=== PATIENT | male | born 1960 | race Caucasian/White ===

== ENCOUNTER 2017-03-10 11:50 | Inpatient (IN) | payer OTHER ==
[2017-03-10 13:05] VITALS: BMI 34.0
--- NOTE | 2017-03-10 14:03 | HP ---
CIWA Score - CIWA Score Nausea/Vomitin Muscle Tremors: 3 Anxiety: 3 Agitation: 3 Paroxysmal Sweats: 1-Minimal Palms Moist Orientation: 0-Oriented Tacttile Disturbances: 2-Mild Itch/Numbness/Burn Auditory Disturbances: 2-Mild Harshness/Frighten Visual Disturbances: 2-Mild Sensitivity Headache: 2-Mild CIWA-Ar Total Score: 21 Admission ROS B[facility] - HPI Chief Complaint: I NEED HELP TO STOP DRINKING ALCOHOL Allergies/Adverse Reactions: Allergies Allergy/AdvReac Type Severity Reaction Status Date / Time No Known Allergies Allergy Verified 03/10/17 13:37 History of Present Illness: THIS 56 YEARS OLD WHITE MALE WITH ALCOHOL DEPENDENCE,SEEKING HELP FOR ALCOHOL DETOX,LAST DETOX [facility] MULTIPLE MEDICAL PROBLEMS ASTHMA,COPD,HEPATITIS C TREATED,SYNCOPE,ANGINA,FX OF C4 AND C5,LEFT KNEE ARTHROSCOPY, CARPAL TUNNEL SYNDROME SURGERY,PTSD Exam Limitations: No Limitations - Ebola screening Have you traveled outside of the country in the last 21 days: No Have you had contact with anyone from an Ebola affected area: No Have you been sick,other than usual withdrawal symptoms: No Do you have a fever: No - Review of Systems Constitutional: Loss of Appetite, Malaise, Night Sweats, Changes in sleep, Weakness EENT: reports: Nose Congestion Respiratory: reports: Shortness of Breath, Wheezing Cardiac: reports: Palpitations GI: reports: Diarrhea, Nausea, Vomiting, Abdominal cramping : reports: No Symptoms Reported Musculoskeletal: reports: Back Pain, Joint Pain, Muscle Pain, Joint Stiffness Integumentary: reports: Dryness Neuro: reports: No Symptoms reported, Headache, Tremors Endocrine: reports: No Symptoms Reported Hematology: reports: No Symptoms Reported Psychiatric: reports: Depressed, other (PTSD) Patient History - Patient Medical History Hx Anemia: No Hx Asthma: Yes (ON INHALER) Hx Chronic Obstructive Pulmonary Disease (COPD): Yes (ON INHAKER) Hx Cancer: No Hx Cardiac Disorders: No Hx Congestive Heart Failure: No Hx Hypertension: Yes (not on meds.) Hx Hypercholesterolemia: No Hx Pacemaker: No HX Cerebrovascular Accident: No Hx Seizures: No Hx Dementia: No Hx Diabetes: No Hx Gastrointestinal Disorders: No Hx Liver Disease: No Hx Genitourinary Disorders: No Hx Sexually Transmitted Disorders: Yes (Tx for syphillis 15 yrs ago.) Hx Renal Disease (ESRD): No Hx Thyroid Disease: No Hx Human Immunodeficiency Virus (HIV): No (LAST 2014 NEGATIVE) Hx Hepatitis C: Yes (TREATED) Hx Depression: Yes Hx Suicide Attempt: Yes (Pt tried to overdose in 2000) Hx Schizophrenia: No Other Medical History: NO SUICIDAL,NO HOMICIDAL - Patient Surgical History Past Surgical History: Yes Hx Neurologic Surgery: Yes (Bilateral carpal tunnel syndrome) Hx Orthopedic Surgery: Yes (L knee arthroscopy) Other Surgical History: Sx L index finger. Anesthesia Reaction: No - PPD History Previous Implant?: Yes Documented Results: Negative w/proof Implanted On Prior [facility] Admission?: No PPD to be Administered?: Yes - Smoking Cessation Smoking history: Current some day smoker Have you smoked in the past 12 months: Yes Aproximately how many cigarettes per day: 3 Hx Chewing Tobacco Use: No Initiated information on smoking cessation: Yes 'Breaking Loose' booklet given: 03/10/17 - Substance & Tx. History Hx Alcohol Use: Yes Hx Substance Use: No Substance Use Type: Alcohol Hx Substance Use Treatment: Yes ([facility] 2003) - Substances Abused Alcohol Route: Oral Frequency: Daily Amount used: 4 24 OZ CANS/ 1 PINT VODKA Age of first use: 11 Date of Last Use: 03/09/17 Family Disease History - Family Disease History Family History: Denies Admission Physical Exam [facility] - Vital Signs Vital Signs: Vital Signs - 24 hr 03/10/17 13:02 Temperature 99 F Pulse Rate 98 H Respiratory 20 Rate Blood Pressure 154/96 - Physical General Appearance: Yes: Moderate Distress, Tremorous, Irritable, Sweating, Anxious HEENTM: Yes: Hearing grossly Normal, Normal ENT Inspection, Pharynx Normal Respiratory: Yes: No Respiratory Distress, Wheezing Neck: Yes: Within Normal Limits, No masses,lesions,Nodules, Supple Breast: Yes: Within Normal Limits Cardiology: Yes: Within Normal Limits, Regular Rhythm, Regular Rate, S1, S2 Abdominal: Yes: Normal Bowel Sounds, Non Tender, Flat, Soft Genitourinary: Yes: Within Normal Limits Back: Yes: Muscle Spasm Musculoskeletal: Yes: Within Normal Limits, full range of Motion, Back pain, Muscle Pain Extremities: Yes: Tremors Neurological: Yes: quantitative associate II-XII NML intact, Fully Oriented, Alert, Motor Strength 5/5 Integumentary: Yes: Dry Lymphatic: Yes: Within Normal Limits - Diagnostic (1) Alcohol dependence with uncomplicated withdrawal Current Visit: Yes Status: Acute (2) COPD (chronic obstructive pulmonary disease) Current Visit: Yes Status: Chronic (3) Asthma Current Visit: Yes Status: Acute (4) PTSD (post-traumatic stress disorder) Current Visit: Yes Status: Acute (5) Depression Current Visit: Yes Status: Acute (6) Hepatitis C Current Visit: Yes Status: Chronic (7) History of angina Current Visit: Yes Status: Chronic (8) Cervical spine fracture Current Visit: Yes Status: Chronic Cleared for Admission [facility] - Detox or Rehab [facility] Level of Care: Medically Managed Detox Regimen/Protocol: Librium [facility] Breath Alcohol Content Breath Alcohol Content: 0 Urine Drug Screen - Results Drug Screen Negative: Yes
[2017-03-10] MEDS ORDERED: chlordiazePOXIDE HCL 25 MG CAPSULE PO PRN (14:14)
[2017-03-10] MEDS ORDERED: MENTHOL/PHENOL 1 EACH UD MM PRN (14:14)
[2017-03-10] MEDS ORDERED: MAG HYDROX/AL HYDROX/SIMETH 30 ML UNIT-DOSE CUP PO PRN (14:14)
[2017-03-10] MEDS ORDERED: diphenhydrAMINE HCL 50 MG CAPSULE PO PRN (14:14)
[2017-03-10] MEDS ORDERED: LOPERAMIDE HCL 2 MG CAPSULE PO PRN (14:14)
[2017-03-10] MEDS ORDERED: hydrOXYzine PAMOATE 50 MG CAPSULE (FP) PO PRN (14:14)
[2017-03-10] MEDS ORDERED: ACETAMINOPHEN 325 MG TABLET (FP) PO PRN (14:14)
[2017-03-10] MEDS ORDERED: P-EPHED 60MG/TRIPROLIDI 2.5MG TABLET PO PRN (14:14)
[2017-03-10] MEDS ORDERED: IBUPROFEN 400 MG TABLET (FP) PO PRN (14:14)
[2017-03-10] MEDS ORDERED: MAGNESIUM HYDROX 2400MG/30ML ORAL SUSPENSION 30 ML CUP PO PRN (14:14)
[2017-03-10] MEDS ORDERED: MAGNESIUM CITRATE 300 ML BOTTLE PO PRN (14:14)
[2017-03-10] MEDS ORDERED: chlordiazePOXIDE HCL 25 MG CAPSULE PO ONE (14:29)
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
[2017-03-10] MEDS: chlordiazePOXIDE HCL 25 MG CAPSULE PO SCH ×2 (17:27→22:36)
[2017-03-10 18:00] LABS: URINE APPEARANCE CLEAR; URINE BILIRUBIN NEGATIVE (NEGATIVE); URINE BLOOD NEGATIVE (NEGATIVE); URINE COLOR YELLOW; URINE GLUCOSE (UA) NEGATIVE (NEGATIVE); URINE KETONE NEGATIVE (NEGATIVE); URINE LEUK ESTERASE NEGATIVE (NEGATIVE); URINE NITRITE NEGATIVE (NEGATIVE); URINE PROTEIN NEGATIVE (NEGATIVE); URINE UROBILINOGEN NEGATIVE E.U./dl (0.2-1.0)
[2017-03-10] MEDS: IBUPROFEN 600 MG TABLET (FP) PO PRN (20:15)
--- NOTE | 2017-03-10 21:05 | PN ---
[facility] Progress Note Note: PATIENT REPORTS SHOWER HEAD FELL OUT AND HIT HIS HEAD OBSERVED PATIENT AMBULATING ON [address], ALERT ORIENTED X 3, NO ACUTE DISTRESS, DENIES PAIN, DENIES VISION ALTERATION, NORMAL CEPHALIC, SKIN INTACT, NO REDNESS , NO SWELL, NONE TENDER, PATIENT REPORTS RIGHT HAND PAIN FROM OLD INJURY "40 YEARS AGO", ICE PACK + X RAY CONTINUE DETOX
[2017-03-10] MEDS: THIAMINE HCL 100 MG TABLET (FP) PO SCH (22:36)
[2017-03-10] MEDS: traZODone HCL 100 MG TABLET (FP) PO SCH (22:37)
[2017-03-10] MEDS: BUDESONIDE/FORMETEROL FUMARATE 160/4.5 mcg INHALER IH SCH (23:22)
[2017-03-11] MEDS: chlordiazePOXIDE HCL 25 MG CAPSULE PO SCH ×4 (05:39→22:46)
[2017-03-11] MEDS: IBUPROFEN 600 MG TABLET (FP) PO PRN (07:09)
[2017-03-11 10:24] LABS: ALBUMIN 4.2 g/dl (3.4-5.0); ALK PHOS 118 U/L (45-117); ANION GAP 12 (8-16); BILIRUBIN,TOTAL 0.9 mg/dL (0.2-1.0); CALCIUM 9.2 mg/dL (8.5-10.1); CO2 23 mmol/L (21-32); COCKROFT - GAULT 128.57; CREATININE 0.9 mg/dL (0.7-1.3); GLUCOSE,RANDOM 90 mg/dL (74-106); SGOT/AST 35 U/L (15-37); SGPT/ALT 59 U/L (12-78); TOT PROT 8.1 g/dl (6.4-8.2)
[2017-03-11 10:27] LABS: MCH 30.6 pg (25.7-33.7); MCHC 34.6 g/dl (32.0-35.9); MEAN CELL VOLUME 88.3 fl (80-96); MEAN PLT VOLUME 8.1 fl (7.5-11.1); PLATELET COUNT 155 K/MM3 (134-434); RDW 14.3 % (11.9-15.9); WHITE BLOOD COUNT 13.8 K/mm3 (4.0-10.0)
[2017-03-11] MEDS: PRENATAL VITAMINS W/ FOLIC ACID TABLET (FP) PO SCH (10:38)
[2017-03-11] MEDS: FLUoxetine HCL 20 MG CAPSULE (FP) PO SCH (10:38)
[2017-03-11] MEDS: BUDESONIDE/FORMETEROL FUMARATE 160/4.5 mcg INHALER IH SCH ×2 (10:39→22:46)
--- NOTE | 2017-03-11 11:38 | EKG ---
Test Reason : Blood Pressure : / mmHG Vent. Rate : 080 BPM Atrial Rate : 080 BPM P-R Int : 136 ms QRS Dur : 092 ms QT Int : 414 ms P-R-T Axes : 037 010 043 degrees QTc Int : 477 ms NORMAL SINUS RHYTHM NORMAL ECG NO PREVIOUS ECGS AVAILABLE Confirmed by TOBY BOWEN MD ([id number]) on 03/11/2017 11:38:15 AM Referred By: Confirmed By:TOBY BOWEN MD
--- NOTE | 2017-03-11 13:44 | PN ---
[facility] CIWA - CIWA Score Nausea/Vomitin-No Nausea/No Vomiting Muscle Tremors: 3 Anxiety: 4-Mod. Anxious/Guarded Agitation: 3 Paroxysmal Sweats: 3 Orientation: 0-Oriented Tacttile Disturbances: 3-Moderate Itch/Numb/Burn Auditory Disturbances: 2-Mild Harshness/Frighten Visual Disturbances: 0-None Headache: 0-None Present CIWA-Ar Total Score: 18 S Progress Note (SOAP) Subjective: Body aches, H/A, Back Ache, Tremors. Objective: PT. A & O X 3, OBSERVED AMBULATING ON UNIT. PT. DENIES CHEST PAIN. 03/11/17 13:42 Vital Signs Temperature 96.9 F L 03/11/17 09:36 Pulse Rate 76 03/11/17 09:36 Respiratory Rate 18 03/11/17 09:36 Blood Pressure 124/75 03/11/17 09:36 O2 Sat by Pulse Oximetry (%) Laboratory Last Values WBC 13.8 K/mm3 (4.0-10.0) H 03/11/17 06:00 RBC 4.76 M/mm3 (4.00-5.60) 03/11/17 06:00 Hgb 14.6 GM/dL (11.7-16.9) 03/11/17 06:00 Hct 42.1 % (35.4-49) 03/11/17 06:00 MCV 88.3 fl (80-96) 03/11/17 06:00 MCHC 34.6 g/dl (32.0-35.9) 03/11/17 06:00 RDW 14.3 % (11.9-15.9) 03/11/17 06:00 Plt Count 155 K/MM3 (134-434) 03/11/17 06:00 MPV 8.1 fl (7.5-11.1) 03/11/17 06:00 Sodium 143 mmol/L (136-145) 03/11/17 06:00 Potassium 3.9 mmol/L (3.5-5.1) 03/11/17 06:00 Chloride 108 mmol/L (98-107) H 03/11/17 06:00 Carbon Dioxide 23 mmol/L (21-32) 03/11/17 06:00 Anion Gap 12 (8-16) 03/11/17 06:00 BUN 18 mg/dL (7-18) 03/11/17 06:00 Creatinine 0.9 mg/dL (0.7-1.3) 03/11/17 06:00 Creat Clearance w eGFR > 60 (>60) 03/11/17 06:00 Random Glucose 90 mg/dL (74-106) 03/11/17 06:00 Calcium 9.2 mg/dL (8.5-10.1) 03/11/17 06:00 Total Bilirubin 0.9 mg/dL (0.2-1.0) 03/11/17 06:00 AST 35 U/L (15-37) 03/11/17 06:00 ALT 59 U/L (12-78) 03/11/17 06:00 Alkaline Phosphatase 118 U/L (45-117) H 03/11/17 06:00 Total Protein 8.1 g/dl (6.4-8.2) 03/11/17 06:00 Albumin 4.2 g/dl (3.4-5.0) 03/11/17 06:00 Urine Color Yellow 03/10/17 15:30 Urine Appearance Clear 03/10/17 15:30 Urine pH 6.0 (5.0-8.0) 03/10/17 15:30 Ur Specific [place] 1.015 (1.005-1.025) 03/10/17 15:30 Urine Protein Negative (NEGATIVE) 03/10/17 15:30 Urine Glucose (UA) Negative (NEGATIVE) 03/10/17 15:30 Urine Ketones Negative (NEGATIVE) 03/10/17 15:30 Urine Blood Negative (NEGATIVE) 03/10/17 15:30 Urine Nitrite Negative (NEGATIVE) 03/10/17 15:30 Urine Bilirubin Negative (NEGATIVE) 03/10/17 15:30 Urine Urobilinogen Negative E.U./dl (0.2-1.0) 03/10/17 15:30 Ur Leukocyte Esterase Negative (NEGATIVE) 03/10/17 15:30 LABS NOTED. 03/11/17 13:44 Assessment: 03/11/17 13:43 WITHDRAWAL SYMPTOMS. Plan: CONTINUE DETOX. ADVISED PATIENT TO FOLLOW-UP WITH OPTICAL WORKER AFTER DISCHARGE FROM DETOX FOR GENERAL MEDICAL ASSESSMENT AND FOR ABNORMAL DETOX ADMISSION LAB VALUES.
[2017-03-11] MEDS: traZODone HCL 100 MG TABLET (FP) PO SCH (22:46)
[2017-03-11] MEDS: THIAMINE HCL 100 MG TABLET (FP) PO SCH (22:46)
[2017-03-12] MEDS: chlordiazePOXIDE HCL 25 MG CAPSULE PO SCH ×2 (05:36→10:32)
[2017-03-12] MEDS: ALBUTEROL SO4 6.7 GM HFA INHALER IH PRN (05:39)
[2017-03-12] MEDS: IBUPROFEN 600 MG TABLET (FP) PO PRN (09:08)
[2017-03-12] MEDS: PRENATAL VITAMINS W/ FOLIC ACID TABLET (FP) PO SCH (10:32)
[2017-03-12] MEDS: BUDESONIDE/FORMETEROL FUMARATE 160/4.5 mcg INHALER IH SCH ×2 (10:32→22:52)
[2017-03-12] MEDS: FLUoxetine HCL 20 MG CAPSULE (FP) PO SCH (10:32)
--- NOTE | 2017-03-12 12:17 | PN ---
S CIWA - CIWA Score Nausea/Vomitin-No Nausea/No Vomiting Muscle Tremors: 3 Anxiety: 4-Mod. Anxious/Guarded Agitation: 3 Paroxysmal Sweats: 2 Orientation: 0-Oriented Tacttile Disturbances: 3-Moderate Itch/Numb/Burn Auditory Disturbances: 2-Mild Harshness/Frighten Visual Disturbances: 0-None Headache: 3-Moderate CIWA-Ar Total Score: 20 [facility] Progress Note (SOAP) Subjective: Interrupted Sleep, H/A, Body Aches. Pt. reports discomfort in right hand (pt. fell to ground and hit right hand on ground on 03/09/2017, just prior to admission to Detox) Objective: PT. A & O X 3, OBSERVED AMBULATING ON UNIT. PT. DENIES CHEST PAIN. MILD SWELLING NOTED ON DORSUM OF RIGHT HAND. NO WOUNDS, DISCOLORATION, ERYTHEMA , OR UNUSUAL DISCHARGE NOTED ON RIGHT HAND. PT. HAS FULL ROM OF RIGHT HAND AND FINGERS. PT. DENIES NUMBNESS / TINGLING IN RIGHT HAND / FINGERS. 03/12/17 12:13 Vital Signs Temperature 98 F 03/12/17 09:54 Pulse Rate 71 03/12/17 09:54 Respiratory Rate 20 03/12/17 09:54 Blood Pressure 140/83 03/12/17 09:54 O2 Sat by Pulse Oximetry (%) Laboratory Last Values WBC 13.8 K/mm3 (4.0-10.0) H 03/11/17 06:00 RBC 4.76 M/mm3 (4.00-5.60) 03/11/17 06:00 Hgb 14.6 GM/dL (11.7-16.9) 03/11/17 06:00 Hct 42.1 % (35.4-49) 03/11/17 06:00 MCV 88.3 fl (80-96) 03/11/17 06:00 MCHC 34.6 g/dl (32.0-35.9) 03/11/17 06:00 RDW 14.3 % (11.9-15.9) 03/11/17 06:00 Plt Count 155 K/MM3 (134-434) 03/11/17 06:00 MPV 8.1 fl (7.5-11.1) 03/11/17 06:00 Sodium 143 mmol/L (136-145) 03/11/17 06:00 Potassium 3.9 mmol/L (3.5-5.1) 03/11/17 06:00 Chloride 108 mmol/L (98-107) H 03/11/17 06:00 Carbon Dioxide 23 mmol/L (21-32) 03/11/17 06:00 Anion Gap 12 (8-16) 03/11/17 06:00 BUN 18 mg/dL (7-18) 03/11/17 06:00 Creatinine 0.9 mg/dL (0.7-1.3) 03/11/17 06:00 Creat Clearance w eGFR > 60 (>60) 03/11/17 06:00 Random Glucose 90 mg/dL (74-106) 03/11/17 06:00 Calcium 9.2 mg/dL (8.5-10.1) 03/11/17 06:00 Total Bilirubin 0.9 mg/dL (0.2-1.0) 03/11/17 06:00 AST 35 U/L (15-37) 03/11/17 06:00 ALT 59 U/L (12-78) 03/11/17 06:00 Alkaline Phosphatase 118 U/L (45-117) H 03/11/17 06:00 Total Protein 8.1 g/dl (6.4-8.2) 03/11/17 06:00 Albumin 4.2 g/dl (3.4-5.0) 03/11/17 06:00 Urine Color Yellow 03/10/17 15:30 Urine Appearance Clear 03/10/17 15:30 Urine pH 6.0 (5.0-8.0) 03/10/17 15:30 Ur Specific [place] 1.015 (1.005-1.025) 03/10/17 15:30 Urine Protein Negative (NEGATIVE) 03/10/17 15:30 Urine Glucose (UA) Negative (NEGATIVE) 03/10/17 15:30 Urine Ketones Negative (NEGATIVE) 03/10/17 15:30 Urine Blood Negative (NEGATIVE) 03/10/17 15:30 Urine Nitrite Negative (NEGATIVE) 03/10/17 15:30 Urine Bilirubin Negative (NEGATIVE) 03/10/17 15:30 Urine Urobilinogen Negative E.U./dl (0.2-1.0) 03/10/17 15:30 Ur Leukocyte Esterase Negative (NEGATIVE) 03/10/17 15:30 RPR Titer Nonreactive (NONREACTIVE) 03/11/17 06:00 LABS NOTED. RESULTS OF X-RAY OF RIGHT HAND FROM 03/10/2017 NOTED. 03/12/17 12:15 03/12/17 12:18 Assessment: 03/12/17 12:14 WITHDRAWAL SYMPTOMS. Plan: CONTINUE DETOX. ICE PACK ORDERED FOR RIGHT HAND. WRIST SPLINT / STABILIZER ORDERED FOR RIGHT HAND / WRIST AND SLING ORDERED FOR RIGHT ARM. PT. ADVISED TO WEAR BOTH SPLINT AND SLING AND TO REST RIGHT HAND MUCH POSSIBLE AND LIMIT USE OF IT MUCH POSSIBLE FOR TIME BEING. PATIENT VERBALIZED UNDERSTANDING OF INSTRUCTIONS / RECOMMENDATIONS. PRN IBUPROFEN FOR PAIN IN HAND. ADVISED PATIENT TO FOLLOW-UP WITH LEAD QA ANALYST AFTER DISCHARGE FROM DETOX FOR GENERAL MEDICAL ASSESSMENT AND FOR HISTORY OF FRACTURE OF RIGHT HAND.
[2017-03-12] MEDS: BETAMETHASONE VALER 0.1% OINT 15 GM TUBE TP SCH ×2 (14:44→23:28)
--- NOTE | 2017-03-12 17:15 | PN ---
[facility] Progress Note Note: RECEIVED REPORT FROM Larisa ANN, RN: RESULT OF ADMISSION PPD: POSITIVE (15 MM). PATIENT DENIES CHEST PAIN, SOB, AND COUGH. PATIENT AFEBRILE SINCE ADMISSION TO DETOX. CXR ORDERED FOR FURTHER EVALUATION. Tim WINTER EXTRUSION PRESS OPERATOR
[2017-03-12] MEDS: chlordiazePOXIDE 5 MG CAPSULE PO SCH ×2 (17:17→22:52)
[2017-03-12] MEDS: traZODone HCL 100 MG TABLET (FP) PO SCH (22:52)
[2017-03-12] MEDS: THIAMINE HCL 100 MG TABLET (FP) PO SCH (22:52)
[2017-03-13] MEDS: chlordiazePOXIDE 5 MG CAPSULE PO SCH ×2 (06:16→10:36)
[2017-03-13] MEDS: IBUPROFEN 600 MG TABLET (FP) PO PRN ×2 (06:21→11:43)
[2017-03-13] MEDS: BUDESONIDE/FORMETEROL FUMARATE 160/4.5 mcg INHALER IH SCH ×2 (10:35→22:47)
[2017-03-13] MEDS: PRENATAL VITAMINS W/ FOLIC ACID TABLET (FP) PO SCH (10:36)
[2017-03-13] MEDS: BETAMETHASONE VALER 0.1% OINT 15 GM TUBE TP SCH ×2 (10:36→22:49)
[2017-03-13] MEDS: FLUoxetine HCL 20 MG CAPSULE (FP) PO SCH (10:38)
[2017-03-13] MEDS: chlordiazePOXIDE HCL 10 MG CAPSULE PO SCH ×2 (18:08→22:49)
--- NOTE | 2017-03-13 19:16 | PN ---
[facility] Progress Note (SOAP) Subjective: Back Ache, Interrupted Sleep, Fatigue. Objective: PT. A 7 O X 3, OBSERVED AMBULATING ON UNIT. PT. DENIES CHEST PAIN. 03/13/17 19:13 Vital Signs Temperature 97.2 F L 03/13/17 13:30 Pulse Rate 76 03/13/17 13:30 Respiratory Rate 18 03/13/17 13:30 Blood Pressure 138/83 03/13/17 13:30 O2 Sat by Pulse Oximetry (%) Laboratory Tests 03/10/17 03/11/17 03/11/17 15:30 06:00 06:00 WBC 13.8 H RBC 4.76 Hgb 14.6 Hct 42.1 MCV 88.3 MCHC 34.6 RDW 14.3 Plt Count 155 MPV 8.1 Sodium 143 Potassium 3.9 Chloride 108 H Carbon Dioxide 23 Anion Gap 12 BUN 18 Creatinine 0.9 Creat Clearance w eGFR > 60 Random Glucose 90 Calcium 9.2 Total Bilirubin 0.9 AST 35 ALT 59 Alkaline Phosphatase 118 H Total Protein 8.1 Albumin 4.2 Urine Color Yellow Urine Appearance Clear Urine pH 6.0 Ur Specific [place] 1.015 Urine Protein Negative Urine Glucose (UA) Negative Urine Ketones Negative Urine Blood Negative Urine Nitrite Negative Urine Bilirubin Negative Urine Urobilinogen Negative Ur Leukocyte Esterase Negative RPR Titer 03/11/17 06:00 WBC RBC Hgb Hct MCV MCHC RDW Plt Count MPV Sodium Potassium Chloride Carbon Dioxide Anion Gap BUN Creatinine Creat Clearance w eGFR Random Glucose Calcium Total Bilirubin AST ALT Alkaline Phosphatase Total Protein Albumin Urine Color Urine Appearance Urine pH Ur Specific [place] Urine Protein Urine Glucose (UA) Urine Ketones Urine Blood Urine Nitrite Urine Bilirubin Urine Urobilinogen Ur Leukocyte Esterase RPR Titer Nonreactive LABS NOTED. Assessment: 03/13/17 19:14 WITHDRAWAL SYMPTOMS. Plan: CONTINUE DETOX. AGAIN ADVISED PATIENT TO WEAR BOTH SPLINT AND WRIST / HAND SPLINT PRESCRIBED FOR FRACTURE OF RIGHT HAND. HOWEVER, PATIENT DECLINES TO DO SO. PATIENT AGAIN ADVISED TO FOLLOW-UP WITH E COMMERCE SOLUTION ARCHITECT AFTER DISCHARGE FROM DETOX FOR GENERAL MEDICAL ASSESSMENT AND FOR HISTORY OF FRACTURE OF RIGHT HAND.
[2017-03-13] MEDS: THIAMINE HCL 100 MG TABLET (FP) PO SCH (22:48)
[2017-03-13] MEDS: traZODone HCL 100 MG TABLET (FP) PO SCH (22:48)
[2017-03-14] MEDS: chlordiazePOXIDE HCL 10 MG CAPSULE PO SCH ×2 (07:23→10:34)
[2017-03-14] MEDS: PRENATAL VITAMINS W/ FOLIC ACID TABLET (FP) PO SCH (10:33)
[2017-03-14] MEDS: BUDESONIDE/FORMETEROL FUMARATE 160/4.5 mcg INHALER IH SCH ×2 (10:33→17:56)
[2017-03-14] MEDS: BETAMETHASONE VALER 0.1% OINT 15 GM TUBE TP SCH ×2 (10:33→22:48)
[2017-03-14] MEDS: FLUoxetine HCL 20 MG CAPSULE (FP) PO SCH (10:33)
[2017-03-14] MEDS: guaiFENesin/D-METHORPHAN HB 10 ML UNIT-DOSE CUPS PO PRN ×2 (12:25→19:55)
[2017-03-14] MEDS: IBUPROFEN 600 MG TABLET (FP) PO PRN ×2 (12:25→22:34)
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
[2017-03-14] MEDS: traZODone HCL 100 MG TABLET (FP) PO SCH (22:33)
[2017-03-14] MEDS: THIAMINE HCL 100 MG TABLET (FP) PO SCH (22:33)
[2017-03-15] MEDS: BUDESONIDE/FORMETEROL FUMARATE 160/4.5 mcg INHALER IH SCH ×2 (05:38→17:30)
[2017-03-15] MEDS: guaiFENesin/D-METHORPHAN HB 10 ML UNIT-DOSE CUPS PO PRN ×2 (05:39→22:47)
[2017-03-15] MEDS: IBUPROFEN 600 MG TABLET (FP) PO PRN ×2 (05:41→22:49)
[2017-03-15] MEDS: PRENATAL VITAMINS W/ FOLIC ACID TABLET (FP) PO SCH (10:34)
[2017-03-15] MEDS: FLUoxetine HCL 20 MG CAPSULE (FP) PO SCH (10:35)
[2017-03-15] MEDS: BETAMETHASONE VALER 0.1% OINT 15 GM TUBE TP SCH ×2 (10:35→22:52)
[2017-03-15] MEDS: ALBUTEROL SO4 6.7 GM HFA INHALER IH PRN (11:33)
--- NOTE | 2017-03-15 11:41 | PN ---
[facility] Progress Note (SOAP) Subjective: Tremors, Lower Back Ache, H/A, Body Aches. Objective: PT. A & O X 3, OBSERVED AMBULATING ON UNIT. 03/15/17 11:37 Vital Signs Temperature 95.1 F L 03/15/17 09:58 Pulse Rate 77 03/15/17 09:58 Respiratory Rate 18 03/15/17 09:58 Blood Pressure 127/88 03/15/17 09:58 O2 Sat by Pulse Oximetry (%) Laboratory Tests 03/10/17 03/11/17 03/11/17 15:30 06:00 06:00 WBC 13.8 H RBC 4.76 Hgb 14.6 Hct 42.1 MCV 88.3 MCHC 34.6 RDW 14.3 Plt Count 155 MPV 8.1 Sodium 143 Potassium 3.9 Chloride 108 H Carbon Dioxide 23 Anion Gap 12 BUN 18 Creatinine 0.9 Creat Clearance w eGFR > 60 Random Glucose 90 Calcium 9.2 Total Bilirubin 0.9 AST 35 ALT 59 Alkaline Phosphatase 118 H Total Protein 8.1 Albumin 4.2 Urine Color Yellow Urine Appearance Clear Urine pH 6.0 Ur Specific [place] 1.015 Urine Protein Negative Urine Glucose (UA) Negative Urine Ketones Negative Urine Blood Negative Urine Nitrite Negative Urine Bilirubin Negative Urine Urobilinogen Negative Ur Leukocyte Esterase Negative RPR Titer 03/11/17 06:00 WBC RBC Hgb Hct MCV MCHC RDW Plt Count MPV Sodium Potassium Chloride Carbon Dioxide Anion Gap BUN Creatinine Creat Clearance w eGFR Random Glucose Calcium Total Bilirubin AST ALT Alkaline Phosphatase Total Protein Albumin Urine Color Urine Appearance Urine pH Ur Specific [place] Urine Protein Urine Glucose (UA) Urine Ketones Urine Blood Urine Nitrite Urine Bilirubin Urine Urobilinogen Ur Leukocyte Esterase RPR Titer Nonreactive LABS NOTED. AWAITING RESULTS OF CXR FOR TODAY. 03/15/17 11:39 Assessment: 03/15/17 11:38 WITHDRAWAL SYMPTOMS. Plan: CONTINUE DETOX. ADVISED PATIENT TO FOLLOW-UP WITH SALESPERSON TRAILERS AND [employer]ES AFTER DISCHARGE FOR GENERAL MEDICAL ASSESSMENT.
[2017-03-15] MEDS ORDERED: LIDOCAINE 5% TOPICAL PATCH TP ONE (12:00)
--- NOTE | 2017-03-15 16:39 | PN ---
[facility] Progress Note Note: Report for CXR done 03/15/2017 noted (No evidence of Active Pulmonary Disease). CXR ordered in as a result od positive PPD result on Admission. Results discussed with patient. Patient denies chest pain, cough, and SOB. Patient advised to follow-up with METAL ANNEALER after Discharge from Detox for further evaluation. Patient verbalized understanding of recommendation. Tim Hernandez NP
[2017-03-15] MEDS: THIAMINE HCL 100 MG TABLET (FP) PO SCH (22:47)
[2017-03-15] MEDS: traZODone HCL 100 MG TABLET (FP) PO SCH (22:47)
[2017-03-16] MEDS: guaiFENesin/D-METHORPHAN HB 10 ML UNIT-DOSE CUPS PO PRN (05:42)
[2017-03-16] MEDS: IBUPROFEN 600 MG TABLET (FP) PO PRN (05:42)
[2017-03-16] MEDS: BUDESONIDE/FORMETEROL FUMARATE 160/4.5 mcg INHALER IH SCH (05:44)
[2017-03-16 09:36] VITALS: BP 124/80; PULSE 78; TEMP 96.4
[2017-03-16] MEDS: FLUoxetine HCL 20 MG CAPSULE (FP) PO SCH (10:35)
[2017-03-16] MEDS: PRENATAL VITAMINS W/ FOLIC ACID TABLET (FP) PO SCH (10:35)
[2017-03-16] MEDS: BETAMETHASONE VALER 0.1% OINT 15 GM TUBE TP SCH (10:36)
--- NOTE | 2017-03-16 12:07 | DS ---
[facility] Detox Discharge Summary Admission Date: 03/10/17 Discharge Date: 03/16/17 - History Present History: Alcohol Dependence Pertinent Past History: Asthma Hep C - Physical Exam Results Vital Signs: Vital Signs Temperature 96.4 F L 03/16/17 09:36 Pulse Rate 78 03/16/17 09:36 Respiratory Rate 18 03/16/17 09:36 Blood Pressure 124/80 03/16/17 09:36 O2 Sat by Pulse Oximetry (%) Pertinent Admission Physical Exam Findings: Withdrawal sx. Laboratory Last Values WBC 13.8 K/mm3 (4.0-10.0) H 03/11/17 06:00 RBC 4.76 M/mm3 (4.00-5.60) 03/11/17 06:00 Hgb 14.6 GM/dL (11.7-16.9) 03/11/17 06:00 Hct 42.1 % (35.4-49) 03/11/17 06:00 MCV 88.3 fl (80-96) 03/11/17 06:00 MCHC 34.6 g/dl (32.0-35.9) 03/11/17 06:00 RDW 14.3 % (11.9-15.9) 03/11/17 06:00 Plt Count 155 K/MM3 (134-434) 03/11/17 06:00 MPV 8.1 fl (7.5-11.1) 03/11/17 06:00 Sodium 143 mmol/L (136-145) 03/11/17 06:00 Potassium 3.9 mmol/L (3.5-5.1) 03/11/17 06:00 Chloride 108 mmol/L (98-107) H 03/11/17 06:00 Carbon Dioxide 23 mmol/L (21-32) 03/11/17 06:00 Anion Gap 12 (8-16) 03/11/17 06:00 BUN 18 mg/dL (7-18) 03/11/17 06:00 Creatinine 0.9 mg/dL (0.7-1.3) 03/11/17 06:00 Creat Clearance w eGFR > 60 (>60) 03/11/17 06:00 Random Glucose 90 mg/dL (74-106) 03/11/17 06:00 Calcium 9.2 mg/dL (8.5-10.1) 03/11/17 06:00 Total Bilirubin 0.9 mg/dL (0.2-1.0) 03/11/17 06:00 AST 35 U/L (15-37) 03/11/17 06:00 ALT 59 U/L (12-78) 03/11/17 06:00 Alkaline Phosphatase 118 U/L (45-117) H 03/11/17 06:00 Total Protein 8.1 g/dl (6.4-8.2) 03/11/17 06:00 Albumin 4.2 g/dl (3.4-5.0) 03/11/17 06:00 Urine Color Yellow 03/10/17 15:30 Urine Appearance Clear 03/10/17 15:30 Urine pH 6.0 (5.0-8.0) 03/10/17 15:30 Ur Specific [place] 1.015 (1.005-1.025) 03/10/17 15:30 Urine Protein Negative (NEGATIVE) 03/10/17 15:30 Urine Glucose (UA) Negative (NEGATIVE) 03/10/17 15:30 Urine Ketones Negative (NEGATIVE) 03/10/17 15:30 Urine Blood Negative (NEGATIVE) 03/10/17 15:30 Urine Nitrite Negative (NEGATIVE) 03/10/17 15:30 Urine Bilirubin Negative (NEGATIVE) 03/10/17 15:30 Urine Urobilinogen Negative E.U./dl (0.2-1.0) 03/10/17 15:30 Ur Leukocyte Esterase Negative (NEGATIVE) 03/10/17 15:30 RPR Titer Nonreactive (NONREACTIVE) 03/11/17 06:00 labs noted - Treatment Hospital Course: Detox Protocol Followed, Detoxed Safely, Responded well, Discharged Condition Good, Rehab Referral Accepted Patient has Accepted a Rehab Referral to: [facility] - Medication Discharge Medications: Ambulatory Orders Albuterol Sulfate Inhaler - [Ventolin Hfa Inhaler -] 2 inh PO Q4H PRN 03/10/17 Budesonide/Formeterol Fumarate [SYMBICORT 160/4.5mcg -] 1 inh PO BID 03/10/17 Fluoxetine HCl [Prozac -] 60 mg PO DAILY 03/10/17 Ibuprofen [Motrin -] 600 mg PO Q6H PRN 03/10/17 Trazodone HCl [Desyrel -] 100 mg PO HS 03/10/17 - Diagnosis (1) Alcohol dependence with uncomplicated withdrawal Current Visit: Yes Status: Acute (2) Asthma Current Visit: Yes Status: Acute Qualifiers: Asthma severity: mild intermittent Asthma complication type: uncomplicated Qualified Code(s): J45.20 - Mild intermittent asthma, uncomplicated (3) Insomnia Current Visit: Yes Status: Acute (4) Nicotine dependence Current Visit: Yes Status: Acute Qualifiers: Nicotine product type: cigarettes Substance use status: uncomplicated Qualified Code(s): F17.210 - Nicotine dependence, cigarettes, uncomplicated (5) PTSD (post-traumatic stress disorder) Current Visit: Yes Status: Acute (6) Hepatitis C Current Visit: Yes Status: Chronic Qualifiers: Viral hepatitis chronicity: chronic Hepatic coma status: without hepatic coma Qualified Code(s): B18.2 - Chronic viral hepatitis C - AMA Did Patient Leave Against Medical Advice: No
== END 2017-03-16 12:30 | disposition other institution (70) | DRG 775 ==
LOC: YASAS 11:50 → Y3N 14:18
PROVIDERS: ADMIT Internal Medicine Addiction Medicine; ATTEND Internal Medicine Addiction Medicine
PROC: HZ2ZZZZ Detoxification Services for Substance Abuse Treatment (ICD-10-PCS; principal; 2017-03-10)
DX: F10.230 Alcohol dependence with withdrawal, uncomplicated (principal); F17.210 Nicotine dependence, cigarettes, uncomplicated; F43.10 Post-traumatic stress disorder, unspecified; J45.20 Mild intermittent asthma, uncomplicated; J44.9 Chronic obstructive pulmonary disease, unspecified; G47.00 Insomnia, unspecified; B18.2 Chronic viral hepatitis C; R76.11 Nonspecific reaction to tuberculin skin test without active tuberculosis; M79.641 Pain in right hand; Z87.438 Personal history of other diseases of male genital organs; Z91.5 Personal history of self-harm; W20.8XXA Other cause of strike by thrown, projected or falling object, initial encounter; Y93.E1 Activity, personal bathing and showering; Y92.231 Patient bathroom in hospital as the place of occurrence of the external cause
CPT/HCPCS: 36415; 71020-TC; 73130-TC-RT; 80053; 81003; 85027; 86593; 93005; 93010

== ENCOUNTER 2017-03-16 12:32 | Inpatient (IN) | payer OTHER ==
--- NOTE | 2017-03-16 14:07 | HP ---
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 He was diagnosed with MDD/PTSD and treated with Prozac and trazadone. [facility] [place] [facility]. He currently gets OPC care at [facility] and he is prescribed Prozac 60 mg po daily and trazdone 150 mg po HS. Told life underwriter that he cut Trazdone to 100mg on his own. Physical/Sexual Abuse/Trauma History: No reported history of sexual abuse. As he told Dr Alicea, He is heavily traumatized by the tragic of his and other personal stressors (estrangement form his daughter,discord with his brother,homelessness,financial strains). Additional Comment: Reports history of 2 previous misdemeanor arrests. denies being on probation currently Allergies/Adverse Reactions: Allergies Allergy/AdvReac Type Severity Reaction Status Date / Time No Known Allergies Allergy Verified 03/16/17 13:32 Date of last physical exam: 03/10/17 Concur with the findings of this exam: Yes - Substance Abuse/Tx History Hx Alcohol Use: Yes Hx Substance Use: No Substance Use Type: Alcohol (Started drrinking alcohol at age 11, consumes one pint of vodka & 4x 24oz of beer daily. Last drink on 03/09/17) Hx Substance Use Treatment: Yes (4 previous inpt detox & 2 inpt rehab([facility] & [facility])) - Admission Criteria Previous failed treatment: No Poor recovery environment: Yes Comorbidities: Yes Lacks judgement: Yes Mental Status Exam - Mental Status Exam Alert and Oriented to: Time, Place, Person Cognitive Function: Fair Patient Appearance: Well Groomed Mood: Hopeful, Euthymic Affect: Appropriate Patient Behavior: Cooperative Speech Pattern: Clear Voice Loudness: Normal Thought Process: Intact Thought Disorder: Present Hallucinations: Denies Suicidal Ideation: Denies, Past, Plan Homicidal Ideation: Denies Insight/Judgement: Fair Sleep: Fair Appetite: Good Muscle strength/Tone: Normal Gait/Station: Normal Psychiatric Findings - Problem List ([place] 1, 2,3) (1) Alcohol dependence with uncomplicated withdrawal Current Visit: No Status: Acute (2) Nicotine dependence Current Visit: No Status: Acute Qualifiers: Nicotine product type: cigarettes Substance use status: uncomplicated Qualified Code(s): F17.210 - Nicotine dependence, cigarettes, uncomplicated (3) PTSD (post-traumatic stress disorder) Current Visit: No Status: Acute (4) MDD (major depressive disorder), recurrent episode, severe Current Visit: Yes Status: Acute (5) Asthma Current Visit: No Status: Acute Qualifiers: Asthma severity: mild intermittent Asthma complication type: uncomplicated Qualified Code(s): J45.20 - Mild intermittent asthma, uncomplicated (6) COPD (chronic obstructive pulmonary disease) Current Visit: No Status: Chronic (7) Cervical spine fracture Current Visit: No Status: Chronic (8) Hepatitis C Current Visit: No Status: Chronic Qualifiers: Viral hepatitis chronicity: chronic Hepatic coma status: without hepatic coma Qualified Code(s): B18.2 - Chronic viral hepatitis C (9) History of angina Current Visit: No Status: Chronic - Initial Treatment Plan Initial Treatment Plan: 1) Continue Prozac 60 mg po daily and Trazadone 100 mg po HS. 2) Monitor progress
[2017-03-16] MEDS ORDERED: MAGNESIUM HYDROX 2400MG/30ML ORAL SUSPENSION 30 ML CUP PO PRN (14:43)
[2017-03-16] MEDS ORDERED: diphenhydrAMINE HCL 50 MG CAPSULE PO PRN (14:43)
[2017-03-16] MEDS ORDERED: P-EPHED 60MG/TRIPROLIDI 2.5MG TABLET PO PRN (14:43)
[2017-03-16] MEDS ORDERED: MAGNESIUM CITRATE 300 ML BOTTLE PO PRN (14:43)
[2017-03-16] MEDS ORDERED: MENTHOL/PHENOL 1 EACH UD MM PRN (14:43)
[2017-03-16] MEDS ORDERED: ACETAMINOPHEN 325 MG TABLET (FP) PO PRN (14:43)
[2017-03-16] MEDS ORDERED: LOPERAMIDE HCL 2 MG CAPSULE PO PRN (14:43)
[2017-03-16] MEDS ORDERED: NICOTINE POLACRILEX 2 MG GUM BUC PRN (14:43)
--- NOTE | 2017-03-16 14:46 | HP ---
[facility] Rehab Assess/Revision - Admission History Ad[facility]hab [facility] Date of Admission to Rehab: 03/16/17 - Findings Detox History & Physical reviewed: Yes Concur with findings: Yes Comments/Additional Findings: FOR REHAB PROTOCOL
[2017-03-16] MEDS: THIAMINE HCL 100 MG TABLET (FP) PO SCH (21:45)
[2017-03-16] MEDS: guaiFENesin/D-METHORPHAN HB 10 ML UNIT-DOSE CUPS PO PRN (21:45)
[2017-03-16] MEDS: traZODone HCL 100 MG TABLET (FP) PO SCH (21:45)
[2017-03-16] MEDS: BUDESONIDE/FORMETEROL FUMARATE 160/4.5 mcg INHALER IH SCH (21:45)
[2017-03-17] MEDS: ALBUTEROL SO4 6.7 GM HFA INHALER IH PRN (06:16)
[2017-03-17] MEDS: IBUPROFEN 400 MG TABLET (FP) PO PRN (06:17)
[2017-03-17] MEDS: guaiFENesin/D-METHORPHAN HB 10 ML UNIT-DOSE CUPS PO PRN ×3 (06:18→21:43)
[2017-03-17] MEDS: FLUoxetine HCL 20 MG CAPSULE (FP) PO SCH (10:48)
[2017-03-17] MEDS: PRENATAL VITAMINS W/ FOLIC ACID TABLET (FP) PO SCH (10:48)
[2017-03-17] MEDS: BUDESONIDE/FORMETEROL FUMARATE 160/4.5 mcg INHALER IH SCH ×2 (10:49→21:41)
[2017-03-17] MEDS: NICOTINE 21 MG/24 HOURS TOPICAL PATCH TD SCH (10:49)
[2017-03-17] MEDS: hydrOXYzine PAMOATE 50 MG CAPSULE (FP) PO PRN (14:13)
--- NOTE | 2017-03-17 14:20 | PN ---
[facility] Progress Note Note: 56 y/o m pt with cough , phlegm , nasal excoriations x 2 -3 weeks not resolving plan augmenting 875mg bid robitussin qid bactroban bid
[2017-03-17] MEDS: AMOX TR/POT CLAV 875MG/125MG TABLETS (FP) PO SCH (17:46)
[2017-03-17] MEDS: MUPIROCIN 2% TOPICAL OINTMENT 22 GM TUBE TP SCH (21:41)
[2017-03-17] MEDS: THIAMINE HCL 100 MG TABLET (FP) PO SCH (21:41)
[2017-03-17] MEDS: traZODone HCL 100 MG TABLET (FP) PO SCH (21:41)
[2017-03-18] MEDS: IBUPROFEN 400 MG TABLET (FP) PO PRN (06:23)
[2017-03-18] MEDS: guaiFENesin/D-METHORPHAN HB 10 ML UNIT-DOSE CUPS PO PRN (06:23)
[2017-03-18] MEDS: ALBUTEROL SO4 6.7 GM HFA INHALER IH PRN (06:24)
[2017-03-18] MEDS: AMOX TR/POT CLAV 875MG/125MG TABLETS (FP) PO SCH ×2 (07:19→16:44)
[2017-03-18] MEDS: PRENATAL VITAMINS W/ FOLIC ACID TABLET (FP) PO SCH (10:30)
[2017-03-18] MEDS: BUDESONIDE/FORMETEROL FUMARATE 160/4.5 mcg INHALER IH SCH ×2 (10:30→21:58)
[2017-03-18] MEDS: FLUoxetine HCL 20 MG CAPSULE (FP) PO SCH (10:30)
[2017-03-18] MEDS: MUPIROCIN 2% TOPICAL OINTMENT 22 GM TUBE TP SCH ×2 (10:31→21:59)
[2017-03-18] MEDS: NICOTINE 21 MG/24 HOURS TOPICAL PATCH TD SCH (10:32)
[2017-03-18] MEDS: THIAMINE HCL 100 MG TABLET (FP) PO SCH (21:58)
[2017-03-18] MEDS: traZODone HCL 100 MG TABLET (FP) PO SCH (21:58)
[2017-03-18] MEDS: BETAMETHASONE VALERATE 0.1% CREAM 15 GM TUBE TP SCH (22:01)
[2017-03-19] MEDS: AMOX TR/POT CLAV 875MG/125MG TABLETS (FP) PO SCH ×2 (07:14→16:54)
[2017-03-19] MEDS: PRENATAL VITAMINS W/ FOLIC ACID TABLET (FP) PO SCH (10:39)
[2017-03-19] MEDS: FLUoxetine HCL 20 MG CAPSULE (FP) PO SCH (10:39)
[2017-03-19] MEDS: BUDESONIDE/FORMETEROL FUMARATE 160/4.5 mcg INHALER IH SCH ×2 (10:39→21:48)
[2017-03-19] MEDS: NICOTINE 21 MG/24 HOURS TOPICAL PATCH TD SCH (10:40)
[2017-03-19] MEDS: MUPIROCIN 2% TOPICAL OINTMENT 22 GM TUBE TP SCH ×2 (10:40→21:48)
[2017-03-19] MEDS: BETAMETHASONE VALERATE 0.1% CREAM 15 GM TUBE TP SCH ×2 (10:40→21:48)
[2017-03-19] MEDS: IBUPROFEN 400 MG TABLET (FP) PO PRN ×2 (10:41→21:50)
[2017-03-19] MEDS: guaiFENesin/D-METHORPHAN HB 10 ML UNIT-DOSE CUPS PO PRN ×2 (10:41→21:50)
[2017-03-19] MEDS: traZODone HCL 100 MG TABLET (FP) PO SCH (21:47)
[2017-03-19] MEDS: THIAMINE HCL 100 MG TABLET (FP) PO SCH (21:47)
[2017-03-20] MEDS: IBUPROFEN 400 MG TABLET (FP) PO PRN ×2 (06:31→21:33)
[2017-03-20] MEDS: guaiFENesin/D-METHORPHAN HB 10 ML UNIT-DOSE CUPS PO PRN ×2 (06:31→21:33)
[2017-03-20] MEDS: AMOX TR/POT CLAV 875MG/125MG TABLETS (FP) PO SCH ×2 (07:03→17:02)
[2017-03-20] MEDS ORDERED: PT OWN MED DRAWER 7, Y5N ONE (09:03)
[2017-03-20] MEDS: FLUoxetine HCL 20 MG CAPSULE (FP) PO SCH (10:14)
[2017-03-20] MEDS: PRENATAL VITAMINS W/ FOLIC ACID TABLET (FP) PO SCH (10:14)
[2017-03-20] MEDS: BUDESONIDE/FORMETEROL FUMARATE 160/4.5 mcg INHALER IH SCH ×2 (10:14→21:31)
[2017-03-20] MEDS: NICOTINE 21 MG/24 HOURS TOPICAL PATCH TD SCH (10:15)
[2017-03-20] MEDS: BETAMETHASONE VALERATE 0.1% CREAM 15 GM TUBE TP SCH ×2 (10:16→21:31)
[2017-03-20] MEDS: MUPIROCIN 2% TOPICAL OINTMENT 22 GM TUBE TP SCH ×2 (10:16→21:31)
[2017-03-20] MEDS: THIAMINE HCL 100 MG TABLET (FP) PO SCH (21:32)
[2017-03-20] MEDS: traZODone HCL 100 MG TABLET (FP) PO SCH (21:32)
[2017-03-21] MEDS: IBUPROFEN 400 MG TABLET (FP) PO PRN (06:33)
[2017-03-21] MEDS: guaiFENesin/D-METHORPHAN HB 10 ML UNIT-DOSE CUPS PO PRN (06:35)
[2017-03-21] MEDS: AMOX TR/POT CLAV 875MG/125MG TABLETS (FP) PO SCH ×2 (07:00→16:54)
[2017-03-21] MEDS: FLUoxetine HCL 20 MG CAPSULE (FP) PO SCH (10:28)
[2017-03-21] MEDS: PRENATAL VITAMINS W/ FOLIC ACID TABLET (FP) PO SCH (10:28)
[2017-03-21] MEDS: BUDESONIDE/FORMETEROL FUMARATE 160/4.5 mcg INHALER IH SCH ×2 (10:29→21:55)
[2017-03-21] MEDS: NICOTINE 21 MG/24 HOURS TOPICAL PATCH TD SCH (10:30)
[2017-03-21] MEDS: MUPIROCIN 2% TOPICAL OINTMENT 22 GM TUBE TP SCH ×2 (10:30→21:55)
[2017-03-21] MEDS: BETAMETHASONE VALERATE 0.1% CREAM 15 GM TUBE TP SCH ×2 (10:31→21:55)
[2017-03-21] MEDS: THIAMINE HCL 100 MG TABLET (FP) PO SCH (21:54)
[2017-03-21] MEDS: traZODone HCL 100 MG TABLET (FP) PO SCH (21:54)
[2017-03-22] MEDS: guaiFENesin/D-METHORPHAN HB 10 ML UNIT-DOSE CUPS PO PRN (06:06)
[2017-03-22] MEDS: IBUPROFEN 400 MG TABLET (FP) PO PRN (06:07)
[2017-03-22] MEDS: AMOX TR/POT CLAV 875MG/125MG TABLETS (FP) PO SCH ×2 (07:27→16:59)
[2017-03-22] MEDS: FLUoxetine HCL 20 MG CAPSULE (FP) PO SCH ×2 (07:47→10:36)
[2017-03-22] MEDS: BETAMETHASONE VALERATE 0.1% CREAM 15 GM TUBE TP SCH ×2 (10:35→22:08)
[2017-03-22] MEDS: PRENATAL VITAMINS W/ FOLIC ACID TABLET (FP) PO SCH (10:35)
[2017-03-22] MEDS: BUDESONIDE/FORMETEROL FUMARATE 160/4.5 mcg INHALER IH SCH ×2 (10:35→22:08)
[2017-03-22] MEDS: NICOTINE 21 MG/24 HOURS TOPICAL PATCH TD SCH (10:37)
[2017-03-22] MEDS: MUPIROCIN 2% TOPICAL OINTMENT 22 GM TUBE TP SCH ×2 (10:37→22:08)
[2017-03-22] MEDS: THIAMINE HCL 100 MG TABLET (FP) PO SCH (22:07)
[2017-03-22] MEDS: traZODone HCL 100 MG TABLET (FP) PO SCH (22:08)
[2017-03-23] MEDS: IBUPROFEN 400 MG TABLET (FP) PO PRN ×2 (06:01→21:57)
[2017-03-23] MEDS: FLUoxetine HCL 20 MG CAPSULE (FP) PO SCH ×2 (07:14→10:44)
[2017-03-23] MEDS: AMOX TR/POT CLAV 875MG/125MG TABLETS (FP) PO SCH ×2 (07:14→17:33)
[2017-03-23] MEDS: BUDESONIDE/FORMETEROL FUMARATE 160/4.5 mcg INHALER IH SCH ×2 (10:43→21:55)
[2017-03-23] MEDS: PRENATAL VITAMINS W/ FOLIC ACID TABLET (FP) PO SCH (10:44)
[2017-03-23] MEDS: NICOTINE 21 MG/24 HOURS TOPICAL PATCH TD SCH (10:44)
[2017-03-23] MEDS: BETAMETHASONE VALERATE 0.1% CREAM 15 GM TUBE TP SCH ×2 (10:45→21:54)
[2017-03-23] MEDS: MUPIROCIN 2% TOPICAL OINTMENT 22 GM TUBE TP SCH ×2 (10:45→21:54)
[2017-03-23] MEDS: guaiFENesin/D-METHORPHAN HB 10 ML UNIT-DOSE CUPS PO PRN (10:46)
[2017-03-23] MEDS: traZODone HCL 100 MG TABLET (FP) PO SCH (21:54)
[2017-03-23] MEDS: THIAMINE HCL 100 MG TABLET (FP) PO SCH (21:54)
[2017-03-23] MEDS: METHYL SALICYLATE/MENTHOL OINT 30 GM TUBE TP SCH (21:56)
[2017-03-24] MEDS: IBUPROFEN 400 MG TABLET (FP) PO PRN ×2 (06:01→17:22)
[2017-03-24] MEDS: FLUoxetine HCL 20 MG CAPSULE (FP) PO SCH (06:03)
[2017-03-24] MEDS: AMOX TR/POT CLAV 875MG/125MG TABLETS (FP) PO SCH (07:22)
[2017-03-24] MEDS: BUDESONIDE/FORMETEROL FUMARATE 160/4.5 mcg INHALER IH SCH ×2 (10:23→21:54)
[2017-03-24] MEDS: METHYL SALICYLATE/MENTHOL OINT 30 GM TUBE TP SCH ×2 (10:23→21:53)
[2017-03-24] MEDS: BETAMETHASONE VALERATE 0.1% CREAM 15 GM TUBE TP SCH ×2 (10:24→21:54)
[2017-03-24] MEDS: PRENATAL VITAMINS W/ FOLIC ACID TABLET (FP) PO SCH (10:24)
[2017-03-24] MEDS: NICOTINE 21 MG/24 HOURS TOPICAL PATCH TD SCH (10:24)
[2017-03-24] MEDS: guaiFENesin/D-METHORPHAN HB 10 ML UNIT-DOSE CUPS PO PRN (10:25)
[2017-03-24] MEDS: MUPIROCIN 2% TOPICAL OINTMENT 22 GM TUBE TP SCH ×2 (10:25→21:53)
[2017-03-24] MEDS: THIAMINE HCL 100 MG TABLET (FP) PO SCH (21:53)
[2017-03-24] MEDS: traZODone HCL 100 MG TABLET (FP) PO SCH (21:53)
[2017-03-25] MEDS: FLUoxetine HCL 20 MG CAPSULE (FP) PO SCH (06:41)
[2017-03-25] MEDS: IBUPROFEN 400 MG TABLET (FP) PO PRN ×2 (06:42→22:04)
[2017-03-25] MEDS: PRENATAL VITAMINS W/ FOLIC ACID TABLET (FP) PO SCH (10:35)
[2017-03-25] MEDS: METHYL SALICYLATE/MENTHOL OINT 30 GM TUBE TP SCH ×2 (10:35→22:03)
[2017-03-25] MEDS: BETAMETHASONE VALERATE 0.1% CREAM 15 GM TUBE TP SCH ×2 (10:36→22:05)
[2017-03-25] MEDS: BUDESONIDE/FORMETEROL FUMARATE 160/4.5 mcg INHALER IH SCH ×2 (10:36→22:04)
[2017-03-25] MEDS: NICOTINE 21 MG/24 HOURS TOPICAL PATCH TD SCH (10:39)
[2017-03-25] MEDS: MUPIROCIN 2% TOPICAL OINTMENT 22 GM TUBE TP SCH ×2 (10:39→22:02)
--- NOTE | 2017-03-25 13:05 | PN ---
[facility] Progress Note Note: PAIN IN LEFT HIP FOR 1 YEAR,ON MOTRIN,LEFT HIP XRAY R/O ARTHRITIS
[2017-03-25] MEDS: traZODone HCL 100 MG TABLET (FP) PO SCH (22:03)
[2017-03-25] MEDS: THIAMINE HCL 100 MG TABLET (FP) PO SCH (22:03)
[2017-03-26] MEDS: FLUoxetine HCL 20 MG CAPSULE (FP) PO SCH (06:28)
[2017-03-26] MEDS: IBUPROFEN 400 MG TABLET (FP) PO PRN ×2 (06:29→22:13)
[2017-03-26] MEDS: MUPIROCIN 2% TOPICAL OINTMENT 22 GM TUBE TP SCH ×2 (10:40→22:15)
[2017-03-26] MEDS: METHYL SALICYLATE/MENTHOL OINT 30 GM TUBE TP SCH ×2 (10:41→22:15)
[2017-03-26] MEDS: PRENATAL VITAMINS W/ FOLIC ACID TABLET (FP) PO SCH (10:41)
[2017-03-26] MEDS: BUDESONIDE/FORMETEROL FUMARATE 160/4.5 mcg INHALER IH SCH ×2 (10:41→22:14)
[2017-03-26] MEDS: BETAMETHASONE VALERATE 0.1% CREAM 15 GM TUBE TP SCH ×2 (10:42→22:15)
[2017-03-26] MEDS: NICOTINE 21 MG/24 HOURS TOPICAL PATCH TD SCH (10:42)
[2017-03-26] MEDS: traZODone HCL 100 MG TABLET (FP) PO SCH (22:11)
[2017-03-26] MEDS: THIAMINE HCL 100 MG TABLET (FP) PO SCH (22:11)
[2017-03-27] MEDS: FLUoxetine HCL 20 MG CAPSULE (FP) PO SCH (06:20)
[2017-03-27] MEDS: IBUPROFEN 400 MG TABLET (FP) PO PRN (06:21)
[2017-03-27] MEDS: PRENATAL VITAMINS W/ FOLIC ACID TABLET (FP) PO SCH (10:38)
[2017-03-27] MEDS: BUDESONIDE/FORMETEROL FUMARATE 160/4.5 mcg INHALER IH SCH ×2 (10:38→22:18)
[2017-03-27] MEDS: BETAMETHASONE VALERATE 0.1% CREAM 15 GM TUBE TP SCH ×2 (10:38→22:17)
[2017-03-27] MEDS: METHYL SALICYLATE/MENTHOL OINT 30 GM TUBE TP SCH ×2 (10:39→22:18)
[2017-03-27] MEDS: NICOTINE 21 MG/24 HOURS TOPICAL PATCH TD SCH (10:39)
[2017-03-27] MEDS: MUPIROCIN 2% TOPICAL OINTMENT 22 GM TUBE TP SCH ×2 (10:39→22:18)
[2017-03-27] MEDS: traZODone HCL 100 MG TABLET (FP) PO SCH (22:17)
[2017-03-27] MEDS: THIAMINE HCL 100 MG TABLET (FP) PO SCH (22:17)
[2017-03-28] MEDS: FLUoxetine HCL 20 MG CAPSULE (FP) PO SCH (05:56)
[2017-03-28] MEDS: IBUPROFEN 400 MG TABLET (FP) PO PRN (05:57)
[2017-03-28] MEDS: PRENATAL VITAMINS W/ FOLIC ACID TABLET (FP) PO SCH (10:25)
[2017-03-28] MEDS: BETAMETHASONE VALERATE 0.1% CREAM 15 GM TUBE TP SCH ×2 (10:26→22:08)
[2017-03-28] MEDS: BUDESONIDE/FORMETEROL FUMARATE 160/4.5 mcg INHALER IH SCH ×2 (10:26→22:08)
[2017-03-28] MEDS: NICOTINE 21 MG/24 HOURS TOPICAL PATCH TD SCH (10:26)
[2017-03-28] MEDS: MUPIROCIN 2% TOPICAL OINTMENT 22 GM TUBE TP SCH ×2 (10:27→22:12)
[2017-03-28] MEDS: METHYL SALICYLATE/MENTHOL OINT 30 GM TUBE TP SCH ×2 (10:27→22:12)
[2017-03-28] MEDS: traZODone HCL 100 MG TABLET (FP) PO SCH (22:08)
[2017-03-28] MEDS: THIAMINE HCL 100 MG TABLET (FP) PO SCH (22:08)
[2017-03-29] MEDS: FLUoxetine HCL 20 MG CAPSULE (FP) PO SCH (06:33)
[2017-03-29] MEDS: IBUPROFEN 400 MG TABLET (FP) PO PRN ×2 (06:34→22:11)
[2017-03-29] MEDS: PRENATAL VITAMINS W/ FOLIC ACID TABLET (FP) PO SCH (10:38)
[2017-03-29] MEDS: METHYL SALICYLATE/MENTHOL OINT 30 GM TUBE TP SCH ×2 (10:38→22:14)
[2017-03-29] MEDS: BUDESONIDE/FORMETEROL FUMARATE 160/4.5 mcg INHALER IH SCH ×2 (10:38→22:14)
[2017-03-29] MEDS: NICOTINE 21 MG/24 HOURS TOPICAL PATCH TD SCH (10:39)
[2017-03-29] MEDS: MUPIROCIN 2% TOPICAL OINTMENT 22 GM TUBE TP SCH ×2 (10:39→22:14)
[2017-03-29] MEDS: BETAMETHASONE VALERATE 0.1% CREAM 15 GM TUBE TP SCH ×2 (10:49→22:14)
[2017-03-29] MEDS: traZODone HCL 100 MG TABLET (FP) PO SCH (22:13)
[2017-03-29] MEDS: THIAMINE HCL 100 MG TABLET (FP) PO SCH (22:13)
[2017-03-30] MEDS: FLUoxetine HCL 20 MG CAPSULE (FP) PO SCH (06:03)
[2017-03-30] MEDS: IBUPROFEN 400 MG TABLET (FP) PO PRN ×2 (06:03→22:03)
[2017-03-30] MEDS: BETAMETHASONE VALERATE 0.1% CREAM 15 GM TUBE TP SCH ×2 (06:04→22:01)
[2017-03-30] MEDS: PRENATAL VITAMINS W/ FOLIC ACID TABLET (FP) PO SCH (10:44)
[2017-03-30] MEDS: NICOTINE 21 MG/24 HOURS TOPICAL PATCH TD SCH (10:44)
[2017-03-30] MEDS: METHYL SALICYLATE/MENTHOL OINT 30 GM TUBE TP SCH ×2 (10:44→22:01)
[2017-03-30] MEDS: BUDESONIDE/FORMETEROL FUMARATE 160/4.5 mcg INHALER IH SCH ×2 (10:44→22:02)
[2017-03-30] MEDS: MUPIROCIN 2% TOPICAL OINTMENT 22 GM TUBE TP SCH ×2 (10:44→22:01)
--- NOTE | 2017-03-30 10:51 | PN ---
[facility] Progress Note Note: Pt. reports that he takes med for HTN, can't remember name. Vital Signs - 8 hr 03/30/17 03/30/17 03:30 06:01 Temperature 97.3 F L Pulse Rate 61 Respiratory 18 18 Rate Blood Pressure 133/84 Dx. : HTN P : norvasc 5mg bid
[2017-03-30] MEDS: amLODIPine BESYLATE 5 MG TABLET (FP) PO SCH ×2 (10:56→22:00)
[2017-03-30] MEDS: traZODone HCL 100 MG TABLET (FP) PO SCH (22:00)
[2017-03-30] MEDS: THIAMINE HCL 100 MG TABLET (FP) PO SCH (22:02)
[2017-03-31] MEDS: FLUoxetine HCL 20 MG CAPSULE (FP) PO SCH (06:26)
[2017-03-31] MEDS: BETAMETHASONE VALERATE 0.1% CREAM 15 GM TUBE TP SCH ×2 (06:26→22:12)
[2017-03-31] MEDS: IBUPROFEN 400 MG TABLET (FP) PO PRN (06:27)
[2017-03-31] MEDS: METHYL SALICYLATE/MENTHOL OINT 30 GM TUBE TP SCH ×2 (11:00→22:12)
[2017-03-31] MEDS: PRENATAL VITAMINS W/ FOLIC ACID TABLET (FP) PO SCH (11:00)
[2017-03-31] MEDS: BUDESONIDE/FORMETEROL FUMARATE 160/4.5 mcg INHALER IH SCH ×2 (11:00→22:12)
[2017-03-31] MEDS: MUPIROCIN 2% TOPICAL OINTMENT 22 GM TUBE TP SCH ×2 (11:00→22:12)
[2017-03-31] MEDS: amLODIPine BESYLATE 5 MG TABLET (FP) PO SCH ×2 (11:00→22:11)
[2017-03-31] MEDS: NICOTINE 21 MG/24 HOURS TOPICAL PATCH TD SCH (11:00)
[2017-03-31] MEDS: THIAMINE HCL 100 MG TABLET (FP) PO SCH (22:11)
[2017-03-31] MEDS: traZODone HCL 100 MG TABLET (FP) PO SCH (22:11)
[2017-04-01] MEDS: BETAMETHASONE VALERATE 0.1% CREAM 15 GM TUBE TP SCH ×2 (06:34→22:06)
[2017-04-01] MEDS: FLUoxetine HCL 20 MG CAPSULE (FP) PO SCH (06:34)
[2017-04-01] MEDS: IBUPROFEN 400 MG TABLET (FP) PO PRN (06:34)
[2017-04-01] MEDS: BUDESONIDE/FORMETEROL FUMARATE 160/4.5 mcg INHALER IH SCH ×2 (10:48→22:06)
[2017-04-01] MEDS: NICOTINE 21 MG/24 HOURS TOPICAL PATCH TD SCH (10:49)
[2017-04-01] MEDS: PRENATAL VITAMINS W/ FOLIC ACID TABLET (FP) PO SCH (10:49)
[2017-04-01] MEDS: MUPIROCIN 2% TOPICAL OINTMENT 22 GM TUBE TP SCH ×2 (10:49→22:05)
[2017-04-01] MEDS: amLODIPine BESYLATE 5 MG TABLET (FP) PO SCH ×2 (10:49→22:05)
[2017-04-01] MEDS: METHYL SALICYLATE/MENTHOL OINT 30 GM TUBE TP SCH ×2 (10:50→22:05)
[2017-04-01] MEDS: traZODone HCL 100 MG TABLET (FP) PO SCH (22:05)
[2017-04-01] MEDS: THIAMINE HCL 100 MG TABLET (FP) PO SCH (22:05)
[2017-04-02] MEDS: FLUoxetine HCL 20 MG CAPSULE (FP) PO SCH (05:59)
[2017-04-02] MEDS: IBUPROFEN 400 MG TABLET (FP) PO PRN (06:00)
[2017-04-02] MEDS: BETAMETHASONE VALERATE 0.1% CREAM 15 GM TUBE TP SCH ×2 (06:40→22:08)
[2017-04-02] MEDS: NICOTINE 21 MG/24 HOURS TOPICAL PATCH TD SCH (10:49)
[2017-04-02] MEDS: amLODIPine BESYLATE 5 MG TABLET (FP) PO SCH ×2 (10:49→22:07)
[2017-04-02] MEDS: METHYL SALICYLATE/MENTHOL OINT 30 GM TUBE TP SCH ×2 (10:49→22:08)
[2017-04-02] MEDS: BUDESONIDE/FORMETEROL FUMARATE 160/4.5 mcg INHALER IH SCH ×2 (10:49→22:07)
[2017-04-02] MEDS: PRENATAL VITAMINS W/ FOLIC ACID TABLET (FP) PO SCH (10:49)
[2017-04-02] MEDS: MUPIROCIN 2% TOPICAL OINTMENT 22 GM TUBE TP SCH ×2 (10:49→22:08)
[2017-04-02] MEDS: THIAMINE HCL 100 MG TABLET (FP) PO SCH (22:07)
[2017-04-02] MEDS: traZODone HCL 100 MG TABLET (FP) PO SCH (22:07)
[2017-04-03] MEDS: IBUPROFEN 400 MG TABLET (FP) PO PRN (06:18)
[2017-04-03] MEDS: FLUoxetine HCL 20 MG CAPSULE (FP) PO SCH (06:19)
[2017-04-03] MEDS: BETAMETHASONE VALERATE 0.1% CREAM 15 GM TUBE TP SCH ×2 (06:19→21:59)
[2017-04-03] MEDS: NICOTINE 21 MG/24 HOURS TOPICAL PATCH TD SCH (10:44)
[2017-04-03] MEDS: amLODIPine BESYLATE 5 MG TABLET (FP) PO SCH ×2 (10:44→21:59)
[2017-04-03] MEDS: PRENATAL VITAMINS W/ FOLIC ACID TABLET (FP) PO SCH (10:44)
[2017-04-03] MEDS: BUDESONIDE/FORMETEROL FUMARATE 160/4.5 mcg INHALER IH SCH ×2 (10:45→21:59)
[2017-04-03] MEDS: METHYL SALICYLATE/MENTHOL OINT 30 GM TUBE TP SCH ×2 (10:45→22:00)
[2017-04-03] MEDS: MUPIROCIN 2% TOPICAL OINTMENT 22 GM TUBE TP SCH ×2 (10:46→21:59)
[2017-04-03] MEDS: traZODone HCL 100 MG TABLET (FP) PO SCH (21:59)
[2017-04-03] MEDS: THIAMINE HCL 100 MG TABLET (FP) PO SCH (21:59)
[2017-04-04] MEDS: IBUPROFEN 400 MG TABLET (FP) PO PRN (06:35)
[2017-04-04] MEDS: FLUoxetine HCL 20 MG CAPSULE (FP) PO SCH (06:35)
[2017-04-04] MEDS: BETAMETHASONE VALERATE 0.1% CREAM 15 GM TUBE TP SCH ×2 (06:37→21:48)
[2017-04-04] MEDS: METHYL SALICYLATE/MENTHOL OINT 30 GM TUBE TP SCH ×2 (10:49→21:49)
[2017-04-04] MEDS: NICOTINE 21 MG/24 HOURS TOPICAL PATCH TD SCH (10:49)
[2017-04-04] MEDS: amLODIPine BESYLATE 5 MG TABLET (FP) PO SCH ×2 (10:49→21:48)
[2017-04-04] MEDS: PRENATAL VITAMINS W/ FOLIC ACID TABLET (FP) PO SCH (10:49)
[2017-04-04] MEDS: MUPIROCIN 2% TOPICAL OINTMENT 22 GM TUBE TP SCH ×2 (10:49→21:49)
[2017-04-04] MEDS: BUDESONIDE/FORMETEROL FUMARATE 160/4.5 mcg INHALER IH SCH ×2 (10:50→21:48)
[2017-04-04] MEDS: traZODone HCL 100 MG TABLET (FP) PO SCH (21:48)
[2017-04-04] MEDS: THIAMINE HCL 100 MG TABLET (FP) PO SCH (21:48)
[2017-04-05] MEDS: BETAMETHASONE VALERATE 0.1% CREAM 15 GM TUBE TP SCH ×2 (06:41→21:17)
[2017-04-05] MEDS: FLUoxetine HCL 20 MG CAPSULE (FP) PO SCH (06:41)
[2017-04-05] MEDS: BUDESONIDE/FORMETEROL FUMARATE 160/4.5 mcg INHALER IH SCH ×2 (10:51→21:16)
[2017-04-05] MEDS: PRENATAL VITAMINS W/ FOLIC ACID TABLET (FP) PO SCH (10:51)
[2017-04-05] MEDS: amLODIPine BESYLATE 5 MG TABLET (FP) PO SCH ×2 (10:51→21:15)
[2017-04-05] MEDS: NICOTINE 21 MG/24 HOURS TOPICAL PATCH TD SCH (10:52)
[2017-04-05] MEDS: METHYL SALICYLATE/MENTHOL OINT 30 GM TUBE TP SCH ×2 (10:52→21:16)
[2017-04-05] MEDS: IBUPROFEN 400 MG TABLET (FP) PO PRN (10:52)
[2017-04-05] MEDS: MUPIROCIN 2% TOPICAL OINTMENT 22 GM TUBE TP SCH ×2 (10:52→21:16)
[2017-04-05] MEDS: THIAMINE HCL 100 MG TABLET (FP) PO SCH (21:15)
[2017-04-05] MEDS: traZODone HCL 100 MG TABLET (FP) PO SCH (21:15)
[2017-04-06] MEDS: FLUoxetine HCL 20 MG CAPSULE (FP) PO SCH (06:04)
[2017-04-06] MEDS: BETAMETHASONE VALERATE 0.1% CREAM 15 GM TUBE TP SCH ×2 (06:04→21:55)
[2017-04-06] MEDS: NICOTINE 21 MG/24 HOURS TOPICAL PATCH TD SCH (10:47)
[2017-04-06] MEDS: METHYL SALICYLATE/MENTHOL OINT 30 GM TUBE TP SCH ×2 (10:47→21:55)
[2017-04-06] MEDS: PRENATAL VITAMINS W/ FOLIC ACID TABLET (FP) PO SCH (10:47)
[2017-04-06] MEDS: MUPIROCIN 2% TOPICAL OINTMENT 22 GM TUBE TP SCH ×2 (10:47→21:55)
[2017-04-06] MEDS: amLODIPine BESYLATE 5 MG TABLET (FP) PO SCH ×2 (10:47→21:54)
[2017-04-06] MEDS: BUDESONIDE/FORMETEROL FUMARATE 160/4.5 mcg INHALER IH SCH ×2 (10:48→21:54)
[2017-04-06] MEDS: THIAMINE HCL 100 MG TABLET (FP) PO SCH (21:54)
[2017-04-06] MEDS: traZODone HCL 100 MG TABLET (FP) PO SCH (21:54)
[2017-04-07] MEDS: FLUoxetine HCL 20 MG CAPSULE (FP) PO SCH (06:08)
[2017-04-07] MEDS: IBUPROFEN 400 MG TABLET (FP) PO PRN (06:08)
[2017-04-07] MEDS: BETAMETHASONE VALERATE 0.1% CREAM 15 GM TUBE TP SCH ×2 (06:09→22:15)
[2017-04-07] MEDS: NICOTINE 21 MG/24 HOURS TOPICAL PATCH TD SCH (10:19)
[2017-04-07] MEDS: BUDESONIDE/FORMETEROL FUMARATE 160/4.5 mcg INHALER IH SCH ×2 (10:19→22:16)
[2017-04-07] MEDS: amLODIPine BESYLATE 5 MG TABLET (FP) PO SCH ×2 (10:19→22:15)
[2017-04-07] MEDS: PRENATAL VITAMINS W/ FOLIC ACID TABLET (FP) PO SCH (10:19)
[2017-04-07] MEDS: METHYL SALICYLATE/MENTHOL OINT 30 GM TUBE TP SCH ×2 (10:20→22:16)
[2017-04-07] MEDS: MUPIROCIN 2% TOPICAL OINTMENT 22 GM TUBE TP SCH ×2 (10:20→22:16)
[2017-04-07] MEDS: traZODone HCL 100 MG TABLET (FP) PO SCH (22:15)
[2017-04-07] MEDS: THIAMINE HCL 100 MG TABLET (FP) PO SCH (22:15)
[2017-04-08] MEDS: FLUoxetine HCL 20 MG CAPSULE (FP) PO SCH (06:05)
[2017-04-08] MEDS: BETAMETHASONE VALERATE 0.1% CREAM 15 GM TUBE TP SCH ×2 (06:06→22:19)
[2017-04-08] MEDS: IBUPROFEN 400 MG TABLET (FP) PO PRN (10:03)
[2017-04-08] MEDS: PRENATAL VITAMINS W/ FOLIC ACID TABLET (FP) PO SCH (10:04)
[2017-04-08] MEDS: amLODIPine BESYLATE 5 MG TABLET (FP) PO SCH ×2 (10:04→22:19)
[2017-04-08] MEDS: MUPIROCIN 2% TOPICAL OINTMENT 22 GM TUBE TP SCH ×2 (10:05→22:19)
[2017-04-08] MEDS: BUDESONIDE/FORMETEROL FUMARATE 160/4.5 mcg INHALER IH SCH ×2 (10:05→22:19)
[2017-04-08] MEDS: METHYL SALICYLATE/MENTHOL OINT 30 GM TUBE TP SCH ×2 (10:05→22:20)
[2017-04-08] MEDS: NICOTINE 21 MG/24 HOURS TOPICAL PATCH TD SCH (10:05)
[2017-04-08] MEDS: THIAMINE HCL 100 MG TABLET (FP) PO SCH (22:19)
[2017-04-08] MEDS: traZODone HCL 100 MG TABLET (FP) PO SCH (22:19)
[2017-04-09] MEDS: FLUoxetine HCL 20 MG CAPSULE (FP) PO SCH (06:03)
[2017-04-09] MEDS: BETAMETHASONE VALERATE 0.1% CREAM 15 GM TUBE TP SCH ×2 (06:03→22:22)
[2017-04-09] MEDS: IBUPROFEN 400 MG TABLET (FP) PO PRN (06:04)
[2017-04-09] MEDS: BUDESONIDE/FORMETEROL FUMARATE 160/4.5 mcg INHALER IH SCH ×2 (10:46→22:22)
[2017-04-09] MEDS: amLODIPine BESYLATE 5 MG TABLET (FP) PO SCH ×2 (10:47→22:21)
[2017-04-09] MEDS: PRENATAL VITAMINS W/ FOLIC ACID TABLET (FP) PO SCH (10:47)
[2017-04-09] MEDS: MUPIROCIN 2% TOPICAL OINTMENT 22 GM TUBE TP SCH ×2 (10:47→22:22)
[2017-04-09] MEDS: NICOTINE 21 MG/24 HOURS TOPICAL PATCH TD SCH (10:47)
[2017-04-09] MEDS: METHYL SALICYLATE/MENTHOL OINT 30 GM TUBE TP SCH ×2 (10:47→22:22)
[2017-04-09] MEDS: traZODone HCL 100 MG TABLET (FP) PO SCH (22:21)
[2017-04-09] MEDS: THIAMINE HCL 100 MG TABLET (FP) PO SCH (22:21)
[2017-04-10] MEDS: FLUoxetine HCL 20 MG CAPSULE (FP) PO SCH (06:38)
[2017-04-10] MEDS: IBUPROFEN 400 MG TABLET (FP) PO PRN (06:39)
[2017-04-10] MEDS: BETAMETHASONE VALERATE 0.1% CREAM 15 GM TUBE TP SCH ×2 (06:43→22:13)
[2017-04-10] MEDS: ALBUTEROL SO4 6.7 GM HFA INHALER IH PRN (07:15)
[2017-04-10] MEDS: NICOTINE 21 MG/24 HOURS TOPICAL PATCH TD SCH (10:30)
[2017-04-10] MEDS: PRENATAL VITAMINS W/ FOLIC ACID TABLET (FP) PO SCH (10:30)
[2017-04-10] MEDS: BUDESONIDE/FORMETEROL FUMARATE 160/4.5 mcg INHALER IH SCH ×2 (10:30→22:12)
[2017-04-10] MEDS: MUPIROCIN 2% TOPICAL OINTMENT 22 GM TUBE TP SCH ×2 (10:30→22:13)
[2017-04-10] MEDS: amLODIPine BESYLATE 5 MG TABLET (FP) PO SCH ×2 (10:30→22:12)
[2017-04-10] MEDS: METHYL SALICYLATE/MENTHOL OINT 30 GM TUBE TP SCH ×2 (10:30→22:13)
[2017-04-10] MEDS: traZODone HCL 100 MG TABLET (FP) PO SCH (22:11)
[2017-04-10] MEDS: THIAMINE HCL 100 MG TABLET (FP) PO SCH (22:11)
[2017-04-11] MEDS: FLUoxetine HCL 20 MG CAPSULE (FP) PO SCH (05:46)
[2017-04-11] MEDS: BETAMETHASONE VALERATE 0.1% CREAM 15 GM TUBE TP SCH ×2 (05:48→22:14)
[2017-04-11] MEDS: ALBUTEROL SO4 6.7 GM HFA INHALER IH PRN (06:26)
[2017-04-11] MEDS: hydrOXYzine PAMOATE 50 MG CAPSULE (FP) PO PRN (06:39)
[2017-04-11] MEDS: MAG HYDROX/AL HYDROX/SIMETH 30 ML UNIT-DOSE CUP PO PRN (06:39)
[2017-04-11] MEDS: IBUPROFEN 400 MG TABLET (FP) PO PRN (07:28)
[2017-04-11] MEDS: PRENATAL VITAMINS W/ FOLIC ACID TABLET (FP) PO SCH (10:53)
[2017-04-11] MEDS: MUPIROCIN 2% TOPICAL OINTMENT 22 GM TUBE TP SCH ×2 (10:53→22:15)
[2017-04-11] MEDS: METHYL SALICYLATE/MENTHOL OINT 30 GM TUBE TP SCH ×2 (10:53→22:15)
[2017-04-11] MEDS: amLODIPine BESYLATE 5 MG TABLET (FP) PO SCH ×2 (10:53→22:14)
[2017-04-11] MEDS: NICOTINE 21 MG/24 HOURS TOPICAL PATCH TD SCH (10:54)
[2017-04-11] MEDS: BUDESONIDE/FORMETEROL FUMARATE 160/4.5 mcg INHALER IH SCH ×2 (10:54→22:14)
[2017-04-11] MEDS: THIAMINE HCL 100 MG TABLET (FP) PO SCH (22:14)
[2017-04-11] MEDS: traZODone HCL 100 MG TABLET (FP) PO SCH (22:14)
[2017-04-12] MEDS: FLUoxetine HCL 20 MG CAPSULE (FP) PO SCH (06:23)
[2017-04-12] MEDS: IBUPROFEN 400 MG TABLET (FP) PO PRN (06:24)
[2017-04-12] MEDS: BETAMETHASONE VALERATE 0.1% CREAM 15 GM TUBE TP SCH ×2 (06:43→22:15)
--- NOTE | 2017-04-12 07:46 | PN ---
S Progress Note Note: ASKED TO SEE CLIENT FOR ABRASION TO [facility]AL[facility] FROM SHAVING. CLIENT DENIES ANY C/O AT THIS TIME. " IM FINE" OCCIPITAL ABRASION NOTED TO SCALP Vital Signs Temperature 97.8 F 04/12/17 06:56 Pulse Rate 65 04/12/17 06:56 Respiratory Rate 18 04/12/17 06:56 Blood Pressure 134/89 04/12/17 06:56 O2 Sat by Pulse Oximetry (%) SCALP ABRASION P- BACITRACIN DAILY. COVER WITH CLEAN DRY DRESSING
[2017-04-12] MEDS: PRENATAL VITAMINS W/ FOLIC ACID TABLET (FP) PO SCH (11:02)
[2017-04-12] MEDS: amLODIPine BESYLATE 5 MG TABLET (FP) PO SCH ×2 (11:02→22:14)
[2017-04-12] MEDS: METHYL SALICYLATE/MENTHOL OINT 30 GM TUBE TP SCH ×2 (11:02→22:15)
[2017-04-12] MEDS: NICOTINE 21 MG/24 HOURS TOPICAL PATCH TD SCH (11:03)
[2017-04-12] MEDS: MUPIROCIN 2% TOPICAL OINTMENT 22 GM TUBE TP SCH ×2 (11:03→22:15)
[2017-04-12] MEDS: BUDESONIDE/FORMETEROL FUMARATE 160/4.5 mcg INHALER IH SCH ×2 (11:04→22:14)
[2017-04-12] MEDS: BACITRACIN 0.9 GM PACKET TP SCH (11:04)
[2017-04-12] MEDS: THIAMINE HCL 100 MG TABLET (FP) PO SCH (22:14)
[2017-04-12] MEDS: traZODone HCL 100 MG TABLET (FP) PO SCH (22:14)
[2017-04-13] MEDS: BETAMETHASONE VALERATE 0.1% CREAM 15 GM TUBE TP SCH (06:05)
[2017-04-13] MEDS: FLUoxetine HCL 20 MG CAPSULE (FP) PO SCH (06:05)
[2017-04-13] MEDS: MAG HYDROX/AL HYDROX/SIMETH 30 ML UNIT-DOSE CUP PO PRN (06:38)
[2017-04-13] MEDS: IBUPROFEN 400 MG TABLET (FP) PO PRN (06:38)
[2017-04-13 06:48] VITALS: BP 140/76; PULSE 72; TEMP 98.9
[2017-04-13] MEDS: METHYL SALICYLATE/MENTHOL OINT 30 GM TUBE TP SCH (09:57)
[2017-04-13] MEDS: BUDESONIDE/FORMETEROL FUMARATE 160/4.5 mcg INHALER IH SCH (09:57)
[2017-04-13] MEDS: MUPIROCIN 2% TOPICAL OINTMENT 22 GM TUBE TP SCH (09:57)
[2017-04-13] MEDS: BACITRACIN 0.9 GM PACKET TP SCH (09:57)
[2017-04-13] MEDS: NICOTINE 21 MG/24 HOURS TOPICAL PATCH TD SCH (09:57)
[2017-04-13] MEDS: PRENATAL VITAMINS W/ FOLIC ACID TABLET (FP) PO SCH (09:57)
[2017-04-13] MEDS: amLODIPine BESYLATE 5 MG TABLET (FP) PO SCH (09:57)
--- NOTE | 2017-04-13 11:55 | PN ---
Psychiatric Progress Note Vital Signs: Vital Signs Period Temp Pulse Resp BP Sys/[place] Pulse Ox Last 24 Hr 98.9 F 68-72 18-18 129-140/76-77 Date of Session: 04/13/17 Chief Complaint:: discharge visit HPI: Patient has addressed alcohol, nicotine dependence comorbid MDD and PTSD. ROS: COPD,bronchial asthma,hepatitis C,hypertension,carpal tunnel syndrome medically managed. Current Side Effect: No Lab tests ordered: No Lab tests reviewed: Yes Provider note:: Patient has completed today his treatment and met his goals, will continue to address his issues at the next level of care. Patient gained insights into his addiction and motivated to continue maintain abstinence. He focused on importance of changing attitudes for the utilization of supports to prevent relapses. Patient understands the negative impact alcohol made on all areas of his life. Trazodone and Prozac well toletared, patient repors feels hopeful and energetic, scripts provided, patient is stable for discharge today. Patient was referres to [facility] treatment program. Total face to face time:: 35 Mental Status Exam - Mental Status Exam Alert and Oriented to: Time, Place, Person Cognitive Function: Grossly Intact Mood: Hopeful Affect: Appropriate, Mood Congruent Patient Behavior: Appropriate, Cooperative Speech Pattern: Clear, Appropriate Voice Loudness: Normal Thought Process: Goal Oriented Thought Disorder: Present Hallucinations: None Suicidal Ideation: None Homicidal Ideation: None Insight/Judgement: Good Sleep: Well Appetite: Good Muscle strength/Tone: Normal Gait/Station: Normal
== END 2017-04-13 10:47 | disposition home or self-care (01) | DRG 772 ==
LOC: YASAS 12:32 → Y5N 12:33
PROVIDERS: ADMIT Psychiatry & Neurology Psychiatry; ATTEND Psychiatry & Neurology Psychiatry
PROC: HZ42ZZZ Group Counseling for Substance Abuse Treatment, Cognitive-Behavioral (ICD-10-PCS; principal; 2017-03-16)
DX: F10.20 Alcohol dependence, uncomplicated (principal); F17.210 Nicotine dependence, cigarettes, uncomplicated; F33.9 Major depressive disorder, recurrent, unspecified; F43.10 Post-traumatic stress disorder, unspecified; J45.20 Mild intermittent asthma, uncomplicated; J44.9 Chronic obstructive pulmonary disease, unspecified; B18.2 Chronic viral hepatitis C; I10 Essential (primary) hypertension; M25.552 Pain in left hip; S00.01XA Abrasion of scalp, initial encounter; W26.8XXA Contact with other sharp object(s), not elsewhere classified, initial encounter; Y93.E8 Activity, other personal hygiene; Y92.231 Patient bathroom in hospital as the place of occurrence of the external cause; R05 Cough; Z86.79 Personal history of other diseases of the circulatory system; Z87.81 Personal history of (healed) traumatic fracture
CPT/HCPCS: 73502-TC-LT